=== PATIENT | male | born 1990 | race Caucasian/White ===

== ENCOUNTER 2020-02-13 21:18 | Emergency (ER) | payer MEDICAID ==
[~2020-02-13] VITALS: Ht 182.9 cm; Wt 90.9 kg
--- NOTE | 2020-02-13 21:20 | NUR ---
sent to break releif by Kimber MOSHER
--- NOTE | 2020-02-13 21:20 | NUR ---
irrigated back wounds with NaCl spoke to Dr Bell. verbal care to darryl with NaCl and dress with antibiotic ointment.
--- NOTE | 2020-02-13 21:30 | NUR ---
patient uncooperative with histroy reports no to every question asked
--- NOTE | 2020-02-13 21:49 | NUR ---
irrigated wounds on back and right axilla, with 0.9 NaCl patietn tolerated well no complaints.
[2020-02-13] MEDS ORDERED: amox tr/potassium clavulanate 875/125mg TAB PO ONE (22:15)
[2020-02-13] MEDS ORDERED: TETanus/Pertussis (Acell)/Diphther VAC/PF (Tdap-Adult) 0.5ml syringe IMVAC ONE (22:15)
[2020-02-13] MEDS ORDERED: AMOX-422 PO (22:19)
[2020-02-13 22:50] VITALS: BP 127/89
== END 2020-02-13 22:54 ==
LOC: ER 21:19
DX: S41.011A Laceration without foreign body of right shoulder, initial encounter (principal); S21.212A Laceration without foreign body of left back wall of thorax without penetration into thoracic cavity, initial encounter; S41.111A Laceration without foreign body of right upper arm, initial encounter; F12.90 Cannabis use, unspecified, uncomplicated; W54.0XXA Bitten by dog, initial encounter; Y93.89 Activity, other specified; Y92.89 Other specified places as the place of occurrence of the external cause; Y99.8 Other external cause status
CPT/HCPCS: 90471; 90715; 99283